=== PATIENT | female | born 1970 | race Caucasian/White ===

== ENCOUNTER → 2017-10-02 | Outpatient (CLI) | payer OTHER | LOC: CIMAGING 14:02 | PROVIDERS: ATTEND Family Medicine | DX: R07.1 Chest pain on breathing (principal); I71.2 Thoracic aortic aneurysm, without rupture; D38.3 Neoplasm of uncertain behavior of mediastinum; G35 Multiple sclerosis | CPT/HCPCS: 71046-PO ==

== ENCOUNTER → 2017-10-08 | Outpatient (CLI) | payer OTHER ==
[~2017-10-08] MED LIST: IOPAMIDOL (ISOVUE 370) 100 ML BTL IV ONE
== END ==
LOC: CIMAGING 13:16
PROVIDERS: ATTEND Family Medicine
DX: R07.9 Chest pain, unspecified (principal)
CPT/HCPCS: 71275-PO; Q9967